=== PATIENT | female | born 2005 | race African-American/Black ===

== ENCOUNTER 2024-08-04 22:16 | Emergency (ER) | payer MEDICAID ==
[~2024-08-04] VITALS: Ht 154.9 cm; Wt 64.0 kg
[2024-08-04 22:53] VITALS: O2SAT 100
[2024-08-05] MEDS: TETANUS, DIPHTHERIA, PERTUSSIS VAC/PF 0.5ML (>10YR OLD) IM ONE (00:02)
[2024-08-05] MEDS ORDERED: NEOMY SULF/BACITRAC ZN/POLY OINT 28GM TOP NR (00:15)
[2024-08-05] MEDS ORDERED: BACITRACIN ZINC OINT UDPKT TOP NR (00:30)
[2024-08-05 01:10] VITALS: BP 128/71; PULSE 94; RESP 14; TEMP 36.72516; O2SAT 100
== END 2024-08-05 01:14 | disposition home or self-care (01) ==
LOC: ER 22:16
DX: T20.17XA Burn of first degree of neck, initial encounter (principal); T23.171A Burn of first degree of right wrist, initial encounter; S09.90XA Unspecified injury of head, initial encounter; Z23 Encounter for immunization; Z88.0 Allergy status to penicillin; Y08.89XA Assault by other specified means, initial encounter; Y93.89 Activity, other specified; Y92.89 Other specified places as the place of occurrence of the external cause; Y99.8 Other external cause status
CPT/HCPCS: 16000; 81025; 90471; 90715; 99285